=== PATIENT | female | born 1970 | race Caucasian/White ===

== ENCOUNTER → 2018-12-09 | Outpatient (CLI) | payer MEDICAID ==
[~2018-12-09] MED LIST: CLINDAMYCIN300 MG PO; CYMBALTA; DILAUDID2 MG PO; DILAUDID4 MG PO; GABAPENTIN; HYDROCODONE/APAP; MULTIPLE VITAMI1 CAP PO; NORCO 325 MG-101 TAB PO; ROXICODONE 55 MG/TAB PO
== END ==
LOC: MHCPAIN 13:32
DX: G89.29 Other chronic pain (principal); M47.817 Spondylosis without myelopathy or radiculopathy, lumbosacral region; M54.16 Radiculopathy, lumbar region; M53.3 Sacrococcygeal disorders, not elsewhere classified; M96.1 Postlaminectomy syndrome, not elsewhere classified
CPT/HCPCS: G0463

== ENCOUNTER → 2018-12-21 | Outpatient (CLI) | payer MEDICAID | LOC: MHCPAIN 12:13 | DX: M47.817 Spondylosis without myelopathy or radiculopathy, lumbosacral region (principal); M53.3 Sacrococcygeal disorders, not elsewhere classified; M54.16 Radiculopathy, lumbar region | CPT/HCPCS: G0260; J1040; Q9967 ==

== ENCOUNTER → 2019-04-01 | Outpatient (CLI) | payer MEDICAID | LOC: COL.RAD 15:21 | DX: R93.89 Abnormal findings on diagnostic imaging of other specified body structures (principal); Z87.891 Personal history of nicotine dependence ==